=== PATIENT | female | born 1970 | race Caucasian/White ===

== ENCOUNTER 2017-06-20 10:14 | Emergency (ER) | payer OTHER ==
[~2017-06-20] VITALS: Ht 160 cm; Wt 54.9 kg
[~2017-06-20 10:14] MED LIST: CIPRO 500MG TA500 MG PO; EXCEDRIN1 TAB PO; IBUPROFEN800 MG PO; TYLENOL EXTRA500 M1 PO; VITAMIN D1 TAB PO
--- NOTE | 2017-06-20 10:22 | Emergency Room Report ---
History of Present Illness Time Seen by [id number] Presenting Problem in Triage Pt arrived:Walked Presenting Problem:PT C/O RIGHT FLANK PAIN THAT STARTED THURSDAY MORNING. 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 Clinical Suspician of Infection? Mental Status: Sepsis Risk: Have you (or family members/close friends) recently traveled outside the [place]? If Yes, where/when: Have you had exposure to infectious disease within the past month? TB? Other? Specify: Source patient, RN notes reviewed Exam Limitations no limitations Comment Comes to the ED with complaints of right flank pain since morning. Also having some nausea and vomiting. She has had stones on the left side in the past and had a Nephrolithotomy in the past. She has passed a 6 mm stone in the past Cardiac Chest Pain Chest pain indicative of cardiac No ALLERGIES Coded Allergies: bacitracin (From NEOSPORIN ([id number])) (Mild, 06/20/17) neomycin (From NEOSPORIN ([id number])) (Mild, 06/20/17) polymyxin B (From NEOSPORIN ([id number])) (Mild, 06/20/17) Home Medications Reported Medications Rosuvastatin Calcium 10 MG PO QHS #30 Escitalopram Oxalate (Lexapro 10MG) 10 MG PO DAILY Ibuprofen (Ibuprofen 800MG) 800 MG PO PRN PRN . History Medical History General Hyperlipidemia? Yes Thyroid Problems? Yes Surgical Hx Previous Surgery?Y RIGHT KNEE ARTHROSCOPY X 2 LEFT KIDNEY STONE REMOVED BLT Family History Family Hx Hypertension Yes Review of Systems All Other Systems Reviewed and Negative Constitutional see HPI Genitourinary see HPI. Physical Exam Vital Signs Vital Signs Date Time Temp Pulse Resp B/P Pulse O2 O2 Flow FiO2 Ox Delivery Rate 06/20 1211 76 16 138/84 100 06/20 1127 16 06/20 1120 78 16 131/88 98 06/20 1020 98.5 78 16 126/79 98 06/20 1017 98.5 78 16 126/79 98 General Appearance normal appearance, WD/WN, no apparent distress Respiratory Status No: respiratory distress. 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 Yes Curt was queried for this patient? Yes Reference #: [id number] Risks/benefits of using a controlled substance for treatment were not discussed w/pt Results/Orders Laboratory Tests 06/20/17 1155: Lactic Acid Pending 06/20/17 1029: Sodium 137, Potassium 3.6, Chloride 101, Carbon Dioxide 26, BUN 22 H, Creatinine 1.3 H, Estimated Creat Clear 47 L, Estimated GFR (MDRD) 44 L, Glucose 113 H, Calcium 9.5, Total Bilirubin 0.7, AST 26, ALT 24, Alkaline Phosphatase 51, Total Protein 8.3 H, Albumin 4.4, Globulin 3.9 H, Albumin/ Globulin Ratio 1.1, WBC 19.1 H, RBC 4.16 L, Hgb 13.3, Hct 40.5, MCV 97.2, RDW 12.7, Plt Count 322, MPV 7.4, Gran % 93.4 H, Gran # 17.8 H, Total Counted Pending, Lymphocytes % 3.3 L, Monocytes % 1.6 L, Eosinophils % 1.4, Basophils % 0.4, Neutrophils Pending, Lymphocytes (Manual) Pending, Lymphocytes # 0.6 L, Monocytes # 0.3, Eosinophils # 0.3, Basophils # 0.1, Platelet Estimate Pending, PUBS MCHC 32.9, MCH 32.0 H 06/20/17 1025: Urine Color YELLOW, Urine Appearance SL CLOUDY, Urine pH 7.0, Ur Specific [place] 1.020, Urine Protein 1+ H, Urine Ketones 2+ H, Urine Blood 1+ H, Urine Nitrate NEGATIVE, Urine Bilirubin NEGATIVE, Urine Urobilinogen 0.2, Ur Leukocyte Esterase 1+ H, Urine RBC 3-5, Urine WBC 10-20, Ur Squamous Epith Cells 3-5, Urine Bacteria 1+, Urine Mucus 1+, Urine Glucose NEGATIVE Current Medication Orders Sig/Maya Start time Last Medication Dose Route Stop Time Status Admin Ceftriaxone Sodium 0 .STK-MED ONE 06/20 1143 DC IV Sodium Chloride 50 ML .STK-MED ONE 06/20 1143 DC IV Ceftriaxone Sodium 1 GM ONCE ONE 06/20 1130 DC 06/20 Sodium Chloride 50 ML IV 06/20 1159 1145 Morphine Sulfate 2 MG ONCE ONE 06/20 1130 DC 06/20 IV 06/20 1131 1127 Morphine Sulfate 0 .STK-MED ONE 06/20 1125 DC .ROUTE Ondansetron HCl 4 MG ONCE ONE 06/20 1030 DC 06/20 IV 06/20 1031 1030 Ondansetron HCl 0 .STK-MED ONE 06/20 1030 DC .ROUTE Sodium Chloride 10 ML PRN PRN 06/20 1030 AC IV 06/21 1026 Sodium Chloride 1,000 ML .Q1H1M 06/20 1030 DC 06/20 IV 06/20 1130 1030 Sodium Chloride 10 ML PRN PRN 06/20 1030 AC IV 06/21 1027 Sodium Chloride 1,000 ML .STK-MED ONE 06/20 1030 DC IV Orders Procedure Date/time Status DIET-NOTHING BY MOUTH 06/20 L Active CULTURE, BLOOD 06/20 1130 Active CULTURE, BLOOD 06/20 1125 Active LACTIC ACID 06/20 1125 Active DIFFERENTIAL-WBC 06/[address] ABD/PELVIS REQ 06/20 1028 Complete IV SALINE LOCK 06/20 1028 Active URINALYSIS/COMPLETE 06/20 1028 Complete CBC WITH AUTO DIFF 06/20 1028 Active CHEM 12 PROFILE 06/20 1028 Complete CULTURE, URINE 06/20 1025 Active XRAY/CT/US XRAY/CT/US CT abdomen, pelvis CT interpretation by discussed w/radiologist Time results known: 1220 CT Results 4mm stone at right UVJ with mod to severe hydronephrosis with perinephric stranding Departure Departure Time of Disposition 1221 Disposition DC/XFER from ER to [facility] Clinical Impression Primary Impression: Acute kidney injury (nontraumatic) Secondary Impressions: Acute pyelonephritis, Ureterolithiasis Condition STABLE Referrals Jonathan ARIAS,A.C. (Family) Additional Instructions Discussed with Dr. Hendrickson at [facility] for Dr. Cardona. He accepts the pt in transfer to [facility] to the Hospitalist service, Dr Rossi Discharge Counseling Counseled pt/family regarding diagnosis, test results, medications/RX, follow up needs ED Critical Care Critical Care No If Critical Care minutes are documented, the time involved in the performance of seperately reportable procedures was not counted toward critical care time documented. I directly delivered medical care to this critically ill and/or injured patient. Timely evaluation and treatment was necessary to address the significant organ system(s) dysfunction present in this patient. at 1230
--- NOTE | 2017-06-20 10:22 | Emergency Room Report ---
History of Present Illness Time Seen by [id number] Presenting Problem in Triage Pt arrived:Walked Presenting Problem:PT C/O RIGHT FLANK PAIN THAT STARTED THURSDAY MORNING. 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 Clinical Suspician of Infection? Mental Status: Sepsis Risk: Have you (or family members/close friends) recently traveled outside the [place]? If Yes, where/when: Have you had exposure to infectious disease within the past month? TB? Other? Specify: Source patient, RN notes reviewed Exam Limitations no limitations Comment Comes to the ED with complaints of right flank pain since morning. Also having some nausea and vomiting. She has had stones on the left side in the past and had a Nephrolithotomy in the past. She has passed a 6 mm stone in the past Cardiac Chest Pain Chest pain indicative of cardiac No ALLERGIES Coded Allergies: bacitracin (From NEOSPORIN ([id number])) (Mild, 06/20/17) neomycin (From NEOSPORIN ([id number])) (Mild, 06/20/17) polymyxin B (From NEOSPORIN ([id number])) (Mild, 06/20/17) Home Medications Reported Medications Rosuvastatin Calcium 10 MG PO QHS #30 Escitalopram Oxalate (Lexapro 10MG) 10 MG PO DAILY Ibuprofen (Ibuprofen 800MG) 800 MG PO PRN PRN . History Medical History General Hyperlipidemia? Yes Thyroid Problems? Yes Surgical Hx Previous Surgery?Y RIGHT KNEE ARTHROSCOPY X 2 LEFT KIDNEY STONE REMOVED BLT Family History Family Hx Hypertension Yes Review of Systems All Other Systems Reviewed and Negative Constitutional see HPI Genitourinary see HPI. Physical Exam Vital Signs Vital Signs Date Time Temp Pulse Resp B/P Pulse O2 O2 Flow FiO2 Ox Delivery Rate 06/20 1211 76 16 138/84 100 06/20 1127 16 06/20 1120 78 16 131/88 98 06/20 1020 98.5 78 16 126/79 98 06/20 1017 98.5 78 16 126/79 98 General Appearance normal appearance, WD/WN, no apparent distress Respiratory Status No: respiratory distress. 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 Yes Curt was queried for this patient? Yes Reference #: [id number] Risks/benefits of using a controlled substance for treatment were not discussed w/pt Results/Orders Laboratory Tests 06/20/17 1155: Lactic Acid Pending 06/20/17 1029: Sodium 137, Potassium 3.6, Chloride 101, Carbon Dioxide 26, BUN 22 H, Creatinine 1.3 H, Estimated Creat Clear 47 L, Estimated GFR (MDRD) 44 L, Glucose 113 H, Calcium 9.5, Total Bilirubin 0.7, AST 26, ALT 24, Alkaline Phosphatase 51, Total Protein 8.3 H, Albumin 4.4, Globulin 3.9 H, Albumin/ Globulin Ratio 1.1, WBC 19.1 H, RBC 4.16 L, Hgb 13.3, Hct 40.5, MCV 97.2, RDW 12.7, Plt Count 322, MPV 7.4, Gran % 93.4 H, Gran # 17.8 H, Total Counted Pending, Lymphocytes % 3.3 L, Monocytes % 1.6 L, Eosinophils % 1.4, Basophils % 0.4, Neutrophils Pending, Lymphocytes (Manual) Pending, Lymphocytes # 0.6 L, Monocytes # 0.3, Eosinophils # 0.3, Basophils # 0.1, Platelet Estimate Pending, PUBS MCHC 32.9, MCH 32.0 H 06/20/17 1025: Urine Color YELLOW, Urine Appearance SL CLOUDY, Urine pH 7.0, Ur Specific [place] 1.020, Urine Protein 1+ H, Urine Ketones 2+ H, Urine Blood 1+ H, Urine Nitrate NEGATIVE, Urine Bilirubin NEGATIVE, Urine Urobilinogen 0.2, Ur Leukocyte Esterase 1+ H, Urine RBC 3-5, Urine WBC 10-20, Ur Squamous Epith Cells 3-5, Urine Bacteria 1+, Urine Mucus 1+, Urine Glucose NEGATIVE Current Medication Orders Sig/Maya Start time Last Medication Dose Route Stop Time Status Admin Ceftriaxone Sodium 0 .STK-MED ONE 06/20 1143 DC IV Sodium Chloride 50 ML .STK-MED ONE 06/20 1143 DC IV Ceftriaxone Sodium 1 GM ONCE ONE 06/20 1130 DC 06/20 Sodium Chloride 50 ML IV 06/20 1159 1145 Morphine Sulfate 2 MG ONCE ONE 06/20 1130 DC 06/20 IV 06/20 1131 1127 Morphine Sulfate 0 .STK-MED ONE 06/20 1125 DC .ROUTE Ondansetron HCl 4 MG ONCE ONE 06/20 1030 DC 06/20 IV 06/20 1031 1030 Ondansetron HCl 0 .STK-MED ONE 06/20 1030 DC .ROUTE Sodium Chloride 10 ML PRN PRN 06/20 1030 AC IV 06/21 1026 Sodium Chloride 1,000 ML .Q1H1M 06/20 1030 DC 06/20 IV 06/20 1130 1030 Sodium Chloride 10 ML PRN PRN 06/20 1030 AC IV 06/21 1027 Sodium Chloride 1,000 ML .STK-MED ONE 06/20 1030 DC IV Orders Procedure Date/time Status DIET-NOTHING BY MOUTH 06/20 L Active CULTURE, BLOOD 06/20 1130 Active CULTURE, BLOOD 06/20 1125 Active LACTIC ACID 06/20 1125 Active DIFFERENTIAL-WBC 06/[address] ABD/PELVIS REQ 06/20 1028 Complete IV SALINE LOCK 06/20 1028 Active URINALYSIS/COMPLETE 06/20 1028 Complete CBC WITH AUTO DIFF 06/20 1028 Active CHEM 12 PROFILE 06/20 1028 Complete CULTURE, URINE 06/20 1025 Active XRAY/CT/US XRAY/CT/US CT abdomen, pelvis CT interpretation by discussed w/radiologist Time results known: 1220 CT Results 4mm stone at right UVJ with mod to severe hydronephrosis with perinephric stranding Departure Departure Time of Disposition 1221 Disposition DC/XFER from ER to [facility] Clinical Impression Primary Impression: Acute kidney injury (nontraumatic) Secondary Impressions: Acute pyelonephritis, Ureterolithiasis Condition STABLE Referrals Jonathan ARIAS,A.C. (Family) Additional Instructions Discussed with Dr. Hendrickson at [facility] for Dr. Cardona. He accepts the pt in transfer to [facility] to the Hospitalist service, Dr Rossi Discharge Counseling Counseled pt/family regarding diagnosis, test results, medications/RX, follow up needs ED Critical Care Critical Care No If Critical Care minutes are documented, the time involved in the performance of seperately reportable procedures was not counted toward critical care time documented. I directly delivered medical care to this critically ill and/or injured patient. Timely evaluation and treatment was necessary to address the significant organ system(s) dysfunction present in this patient. at 1230
[2017-06-20] MEDS ORDERED: ROSUVASTATIN CA10 MG PO (10:25)
[2017-06-20] MEDS ORDERED: LEXAPRO 10 MG T10 MG PO (10:25)
--- OUTSIDE RECORDS SUMMARY | 2017-06-20 10:36 | External Medical Summary Rpt | CCD ---
Author Author , MARY CARMEN LENTZ Address Unknown Phone [email or web address] Purpose Continuity of Care Document - 01-23-2017 through 2016 Problems Code Diagnosis DOS Provider Status Z12.31 ENCNTR SCREEN MAMMOGRAM FOR MALIGNANT NEOPLASM OF BREAST
--- OUTSIDE RECORDS SUMMARY | 2017-06-20 10:36 | External Medical Summary Rpt | CCD ---
Author Author [employer] Organization [employer] Address Unknown Phone Unavailable Purpose Continuity of Care Document - through 2016
--- OUTSIDE RECORDS SUMMARY | 2017-06-20 10:36 | External Medical Summary Rpt | CCD ---
Author Author , MARY CARMEN LENTZ Address Unknown Phone mary Purpose Continuity of Care Document - 01-23-2017 through 2016 Problems Code Diagnosis DOS Provider Status Z12.31 ENCNTR SCREEN MAMMOGRAM FOR MALIGNANT NEOPLASM OF BREAST
--- OUTSIDE RECORDS SUMMARY | 2017-06-20 10:37 | External Medical Summary Rpt | CCD ---
Demographics Preferred Language Slovak Marital Status Unknown Catholic Affiliation Unknown Race Unknown Ethnic Group Unknown Author Author , MARY CARMEN LENTZ Address Unknown Phone mary Immunization Unable to retrieve immunization data due to connection failure with Immunization Registry. Please try again later.
--- OUTSIDE RECORDS SUMMARY | 2017-06-20 10:37 | External Medical Summary Rpt | CCD ---
Demographics Preferred Language Swedish Marital Status Unknown Baptist Affiliation Unknown Race Unknown Ethnic Group Unknown Author Author , MARY CARMEN LENTZ Address Unknown Phone mary Immunization Unable to retrieve immunization data due to connection failure with Immunization Registry. Please try again later.
[2017-06-20 10:38] LABS: HEMOGLOBIN 13.3 g/dL (12.2-16.2); LYMPH # 0.6 K/mm3 (0.7-4.5); LYMPH % 3.3 % (10-50.0)
[2017-06-20 10:38] LABS: URINE BILIRUBIN - DIPSTICK NEGATIVE (NEG); URINE BLOOD 1+ (NEG)
--- OUTSIDE RECORDS SUMMARY | 2017-06-20 10:38 | External Medical Summary Rpt ---
Author Author MARYC ARMEN [employer], MARY CARMEN [employer] Organization [employer] Address Unknown Phone Unavailable Results Comprehensive metabolic 2000 panel in Serum or Plasma Observa Value Referen Units Interpr Notes Date tion ce etation Range Albumin/G 1.1 - 1.8 No Normal No Tomas 2 lobulin informati informati 2017 7:05 [Mass on in on in AM ratio] in source source Serum or data data Plasma Albumin 3.4 - 5.0 gm/dL Normal No Tomas 2 [Mass/vol informati 2017 7:05 ume] in on in AM Serum or source Plasma data Alkaline 46 - 116 U/L Low No Tomas 2 phosphata informati 2017 7:05 se on in AM [Enzymati source c data activity/ volume] in Serum or Plasma Bilirubin 0.2 - 1.0 mg/dL Normal No Tomas 2 .total informati 2017 7:05 [Mass/vol on in AM ume] in source Serum or data Plasma Urea 7 - 18 mg/dL High No Tomas 2 nitrogen informati 2017 7:05 [Mass/vol on in AM ume] in source Serum or data Plasma Calcium 8.5 - mg/dL Normal No Tomas 2 [Mass/vol 10.1 informati 2017 7:05 ume] in on in AM Serum or source Plasma data Chloride 98 - 107 mmoL/L Normal No Tomas 2 [Moles/vo informati 2017 7:05 lume] in on in AM Serum or source Plasma data Carbon 21.0 - mmoL/L Normal No Tomas 2 dioxide, 32.0 informati 2017 7:05 total on in AM [Moles/vo source lume] in data Serum or Plasma Creatinin 0.55 - mg/dL Normal No Tomas 2 e 1.02 informati 2017 7:05 [Mass/vol on in AM ume] in source Serum or data Plasma Estimated 59- ML/MIN No REFERENCE Tomas 2 informati RANGE: 2017 7:05 glomerula on in >60 AM r source ML/MIN/1. filtratio data 73 SQUARE n rate METERSIf (GF this patient is -A merican, then multiply theresult by 1.210. Globulin 1.3 - 3.2 gm/dL High No Tomas 2 [Mass/vol informati 2016 7:05 ume] in on in AM Serum source data Glucose 74 - 106 mg/dL Normal No Tomas 2 [Mass/vol informati 2016 7:05 ume] in on in AM Serum or source Plasma data Potassium 3.5 - 5.1 mmoL/L Normal No Tomas 2 informati 2016 7:05 [Moles/vo on in AM lume] in source Serum or data Plasma Sodium 136 - 145 mmoL/L Normal No Tomas 2 [Moles/vo informati 2016 7:05 lume] in on in AM Serum or source Plasma data Aspartate 15 - 37 U/L Normal No Tomas 2 informati 2016 7:05 aminotran on in AM sferase source [Enzymati data c activity/ volume] in Serum or Plasma Alanine 12 - 78 U/L Normal No Tomas 2 aminotran informati 2016 7:05 sferase on in AM [Enzymati source c data activity/ volume] in Serum or Plasma Protein 6.4 - 8.2 gm/dL Normal No Tomas 2 [Mass/vol informati 2016 7:05 ume] in on in AM Serum or source Plasma data Lipid 1996 panel in Serum or Plasma Observa Value Referen Units Interpr Notes Date tion ce etation Range Cholester < 200 mg/dL High No Tomas 2 ol informati 2017 7:05 [Moles/vo on in AM lume] in source Unspecifi data ed specimen Cholester 40 - 60 MG/DL High No Tomas 2 ol in HDL informati 2017 7:05 on in AM [Mass/vol source ume] in data Serum or Plasma Cholester 0 - 130 mg/dL High No Tomas 2 ol in LDL informati 2017 7:05 on in AM [Mass/vol source ume] in data Serum or Plasma by storm on Triglycer 30 - 200 mg/dL Normal No Tomas 2 yovany informati 2017 7:05 [Moles/vo on in AM lume] in source Serum or data Plasma Cholester 0 - 40 No Normal No Tomas 2 ol in informati informati 2016 7:05 VLDL on in on in AM [Mass/vol source source ume] in data data Serum or Plasma Thyrotropin [Units/volume] in Serum or Plasma Observa Value Referen Units Interpr Notes Date tion ce etation Range Thyrotrop 0.358 - uIU/ml No No Tomas 2 in 3.740 informati informati 2017 7:05 [Units/vo on in on in AM lume] in source source Serum or data data Plasma CBC W Auto Differential panel in Blood Observa Value Referen Units Interpr Notes Date tion ce etation Range Basophils 0 - 0.2 K/MM3 Normal No Tomas 2 informati 2016 7:05 [#/volume on in AM ] in source Blood by data Automated count Basophils 0.1 - 2.0 % Normal No Tomas 2 /100 informati 2017 7:05 leukocyte on in AM s in source Blood by data Automated count Eosinophi 0.0 - 0.4 K/mm3 Normal No Tomas 2 ls informati 2016 7:05 [#/volume on in AM ] in source Blood by data Automated count Eosinophi 0.1 - % Normal No Tomas 2 ls/100 12.0 informati 2016 7:05 leukocyte on in AM s in source Blood by data Automated count Granulocy 1.8 - 7.8 K/mm3 Normal No Tomas 2 jeremiah informati 2016 7:05 [#/volume on in AM ] in source Blood by data Automated count Granulocy 37.0 - % Normal No Tomas 2 jeremiah/100 80.0 informati 2017 7:05 leukocyte on in AM s in source Blood by data Automated count Hematocri 37.0 - % Normal No Tomas 2 t [Volume 47.0 informati 2016 7:05 on in AM Fraction] source of Blood data Hemoglobi 12.2 - g/dL Normal No Tomas 2 n 16.2 informati 2016 7:05 [Mass/vol on in AM ume] in source Blood data Lymphocyt 0.7 - 4.5 K/mm3 Normal No Tomas 2 es informati 2016 7:05 [#/volume on in AM ] in source Unspecifi data ed specimen by Automated count Lymphocyt 10 - 50.0 % Normal No Tomas 2 es informati 2016 7:05 [#/volume on in AM ] in source Unspecifi data ed specimen by Automated count Erythrocy 27 - 31.2 pg High No Tomas 2 te mean informati 2017 7:05 corpuscul on in AM ar source hemoglobi data n [Entitic mass] Erythrocy 31.8 - g/dl Normal No Tomas 2 te mean 35.4 informati 2017 7:05 corpuscul on in AM ar source hemoglobi data n concentra tion [Mass/vol ume] by Automated count Erythrocy 82.2 - fl High No Tomas 2 te mean 97.8 informati 2017 7:05 corpuscul on in AM ar volume source [Entitic data volume] by Automated count Monocytes 0.1 - 1.0 K/mm3 Normal No Tomas 2 informati 2017 7:05 [#/volume on in AM ] in source Blood by data Automated count Monocytes 1.7 - 9.3 % Normal No Tomas 2 /100 informati 2017 7:05 leukocyte on in AM s in source Blood by data Automated count Platelet 7.4 - fl Low No Tomas 2 mean 10.4 informati 2017 7:05 volume on in AM [Entitic source volume] data in Blood by Automated count Platelets 142 - 424 K/mm3 Normal No Tomas 2 informati 2017 7:05 [#/volume on in AM ] in source Blood data Erythrocy 4.2 - 5.4 M/mm3 Low No Tomas 2 jeremiah informati 2017 7:05 [#/volume on in AM ] in source Amniotic data fluid Erythrocy 11.5 - % Normal No Tomas 2 te 17.5 informati 2017 7:05 distribut on in AM ion width source [Entitic data volume] by Automated count Leukocyte 4.8 - K/MM3 Normal No Tomas 2 s 10.8 informati 2017 7:05 [#/volume on in AM ] in source Blood data
--- OUTSIDE RECORDS SUMMARY | 2017-06-20 10:38 | External Medical Summary Rpt ---
Author Author MARY CARMEN Production, MARY CARMEN [employer] Organization MARY CARMEN [...]
--- NOTE | 2017-06-20 11:33 | RADIOLOGY REPORT PS360 ---
CT ABD PELVIS W/O CONTRAST CLINICAL INDICATION: Right flank pain, history of stones RIGHT FLANK PAIN ORDERING PHYSICIAN: Ramon Cid MD PATIENT AGE: 46 years COMPARISON: 08/30/2014 TECHNIQUE: Axial images obtained with sagittal and coronal reformats. PROCEDURE: Oral Contrast: None IV Contrast: None . FINDINGS: Lung bases are clear. The liver, gallbladder, spleen, and pancreas are unremarkable. There is moderate to severe right hydronephrosis. A cluster of stone or stones noted in the lower pole the right kidney at 15 x 5 mm with an additional 2 mm stone in the lower pole. There is moderate stranding of the right perinephric renal fat. Moderate hydroureter secondary to a 4 mm stone in the distal right ureter at the ureterovesical junction. Small amount fluid is present in the right paracolic gutter and hepatorenal space. There is a 2 cm area of decreased attenuation involving the lower pole the left kidney macro lobular posterolateral related to renal cyst which may be confirmed with outpatient ultrasound not readily apparent on 08/30/2014. Small nodes are present in the retroperitoneum. No intestinal obstruction, free air, or acute peritoneal inflammatory changes are evident. IMPRESSION: 1. 4 mm right ureterovesical junction stone with moderate to severe right hydronephrosis and hydroureter and moderate stranding of the right perinephric renal fat. Small amount fluid is present in the paracolic gutter and hepatorenal space. 2. Right nephrolithiasis. 3. Probable left renal cyst which may be confirmed with outpatient ultrasound having developed since 08/30/2014.
[2017-06-20 13:02] LABS: NEUTROPHILS 89 % (42-76)
[2017-06-20 13:49] VITALS: BP 130/88
== END 2017-06-20 14:00 | disposition short-term general hospital (02) ==
LOC: ER 10:14
PROVIDERS: General Practice
DX: N10 Acute pyelonephritis (principal); N13.2 Hydronephrosis with renal and ureteral calculous obstruction; Z88.8 Allergy status to other drugs, medicaments and biological substances
CPT/HCPCS: J2405

== ENCOUNTER → 2017-07-21 | Outpatient (CLI) | payer OTHER ==
[~2017-07-21] MED LIST changes: +LEXAPRO 10 MG T10 MG PO; +ROSUVASTATIN CA10 MG PO
[2017-07-21 10:55] LABS: BUN 15 mg/dL (7-18); GFR (ESTIMATED) 78 ML/MIN (59-)
== END ==
LOC: LAB 07:47
PROVIDERS: Urology
DX: N28.9 Disorder of kidney and ureter, unspecified (principal)